=== PATIENT | male | born 1935 | race Caucasian/White ===

== ENCOUNTER 2020-04-13 09:04 | Inpatient (IN) | payer MEDICARE ==
[~2020-04-13] VITALS: Ht 167.6 cm; Wt 63.7 kg
[2020-04-13 09:28] LABS: BASOPHILS % (AUTO) 0.1 % (0.0-5.0); EOSINOPHILS % (AUTO) 0.4 % (0.0-8.0); HEMATOCRIT 47.2 % (42-54); LYMPHOCYTES % (AUTO) 9.7 % (21.0-51.0); MEAN CORPUSCULAR HEMOGLOBIN 30.8 pg (27.0-33.0); MEAN CORPUSCULAR HGB CONC 31.4 g/dL (32.0-36.0); MEAN CORPUSCULAR VOLUME 98.1 fL (79-99); MONOCYTES % (AUTO) 8.6 % (3.0-13.0); NEUTROPHILS % (AUTO) 80.6 % (40.0-77.0); PLATELET COUNT (AUTO) 148 K/uL (130-400); RED BLOOD CELL COUNT(AUTO) 4.81 MIL/uL (4.50-6.20); RED CELL DISTRIBUTION WIDTH 14.6 % (11.0-15.5); WHITE BLOOD COUNT (AUTO) 7.1 K/uL (4.8-10.8)
[2020-04-13 09:41] LABS: CREATININE 1.8 mg/dL (0.5-1.5); POTASSIUM 4.1 mmol/L (3.5-5.1)
[2020-04-13 09:42] LABS: INR 1.38 (0.85-1.15); PROTHROMBIN TIME 14.7 SEC (9.6-11.6)
[2020-04-13 09:45] LABS: ALBUMIN 3.4 g/dL (3.5-5.0); BILIRUBIN,TOTAL 0.9 mg/dL (0.2-1.0); TOTAL PROTEIN, SERUM 7.1 g/dL (6.0-8.3)
[2020-04-13 09:49] LABS: APPEARANCE,URINE Clear (CLEAR); BILIRUBIN,URINE Negative (NEGATIVE); COLOR,URINE Yellow (YELLOW); GLUCOSE, URINE (UA) 500 mg/dL (NEGATIVE); KETONES,URINE Negative (NEGATIVE); LEUKOCYTE ESTERASE ,URINE Negative (NEGATIVE); NITRATE,URINE Negative (NEGATIVE); OCCULT BLOOD,URINE Negative (NEGATIVE); PROTEIN,URINE Trace mg/dL (NEGATIVE); UROBILINOGEN,URINE 0.2 mg/dL (0.2-1.0)
[2020-04-13 10:01] LABS: BACTERIA,URINE None Seen /HPF (None Seen); RBC,URINE 0-1 /HPF (0-1); SQUAMOUS EPITHELIAL CELL,UR 0-2 /HPF (0-2); WBC,URINE 0-1 /HPF (0-1)
[2020-04-13 11:24] LABS: ABG BASE EXCESS -2.1 mmol/L (-2.0-3.0); ABG HCO3 21.3 mmol/L (21.0-28.0); ABG OXYGEN SATURATION 95.6 % (95.0-99.0); ABG PCO2 33 mmHg (35-48)
[2020-04-13] MEDS ORDERED: FUROSEMIDE 10 MG/ML 4ML VIAL ONE (13:05)
[2020-04-13] MEDS ORDERED: PHARMACY COMMUNICATION MISC SCH (17:00)
[2020-04-13] MEDS ORDERED: GLUCAGON 1MG KIT 1 MG ML IM PRN (17:00)
[2020-04-13] MEDS ORDERED: DEXTROSE 50%-WATER 50 ML DISP.SYRIN IV PRN (17:00)
[2020-04-13] MEDS: DEXTROSE 5%-LACTATED RINGERS 1,000 ML IV SCH (17:00)
[2020-04-13] MEDS: LEVOFLOXACIN 500 MG/D5W 100 ML 100 ML IV SCH (17:00)
[2020-04-13] MEDS ORDERED: ACETAMINOPHEN 325 MG TAB PO PRN (17:00)
[2020-04-13] MEDS ORDERED: ONDANSETRON HCL 4 MG/2 ML VIAL IVP PRN (17:00)
[2020-04-13] MEDS ORDERED: ZOSYN 3.375GM+NS 50ML 50 ML IV ONE (17:18)
[2020-04-13] MEDS ORDERED: LEVOFLOXACIN 500 MG/D5W 100 ML 100 ML ONE (18:05)
[2020-04-13 18:20] VITALS: BP 135/70
[2020-04-13 19:35] VITALS: BP 141/69
[2020-04-13] MEDS: AZTREONAM 1 GM VIAL IVP SCH (21:12)
[2020-04-13] MEDS: INSULIN R PO SS1 SQ SCH (21:21)
[2020-04-13 23:30] VITALS: BP 118/76
[2020-04-14 04:00] VITALS: BP 139/74
[2020-04-14] MEDS: INSULIN R PO SS1 SQ SCH ×4 (05:40→20:29)
[2020-04-14] MEDS: AZTREONAM 1 GM VIAL IVP SCH ×2 (05:43→18:46)
[2020-04-14] MEDS: DEXTROSE 5%-LACTATED RINGERS 1,000 ML IV SCH (05:43)
[2020-04-14 05:59] LABS: HEMATOCRIT 43.8 % (42-54); MEAN CORPUSCULAR HEMOGLOBIN 30.7 pg (27.0-33.0); MEAN CORPUSCULAR HGB CONC 32.4 g/dL (32.0-36.0); MEAN CORPUSCULAR VOLUME 94.8 fL (79-99); RED BLOOD CELL COUNT(AUTO) 4.62 MIL/uL (4.50-6.20); RED CELL DISTRIBUTION WIDTH 14.5 % (11.0-15.5); WHITE BLOOD COUNT (AUTO) 6.9 K/uL (4.8-10.8)
[2020-04-14 06:02] LABS: HEMOGLOBIN A1C 8.3 % (4.0-6.0)
[2020-04-14 06:16] LABS: ALBUMIN 2.7 g/dL (3.5-5.0); BILIRUBIN,TOTAL 0.9 mg/dL (0.2-1.0); CREATININE 1.5 mg/dL (0.5-1.5); MAGNESIUM 1.9 mg/dL (1.80-2.40); POTASSIUM 3.4 mmol/L (3.5-5.1); TOTAL PROTEIN, SERUM 5.8 g/dL (6.0-8.3)
[2020-04-14] MEDS ORDERED: CYPR4TAB46 PO (06:25)
[2020-04-14] MEDS ORDERED: FOLI1 PO (06:25)
[2020-04-14] MEDS ORDERED: HYDR-3421 PO (06:25)
[2020-04-14] MEDS ORDERED: ISOS30TA6 PO (06:25)
[2020-04-14] MEDS ORDERED: SITA25TA5 PO (06:25)
[2020-04-14] MEDS ORDERED: PRAV10TA39 PO (06:25)
[2020-04-14] MEDS ORDERED: HYDR10 PO (06:25)
[2020-04-14] MEDS ORDERED: GLIM2TAB30 PO (06:25)
[2020-04-14] MEDS ORDERED: FERR325T22 PO (06:25)
[2020-04-14] MEDS ORDERED: CARV6.25 PO (06:25)
[2020-04-14] MEDS ORDERED: APIX5TAB PO (06:25)
[2020-04-14] MEDS ORDERED: CYAN-52 PO (06:34)
[2020-04-14] MEDS ORDERED: NITR0.4T50 SL (06:34)
[2020-04-14] MEDS ORDERED: ERGO500014 PO (06:34)
[2020-04-14] MEDS ORDERED: DEXA1TAB PO (06:34)
[2020-04-14] MEDS ORDERED: LEVO500T89 PO (06:40)
[2020-04-14 08:00] VITALS: BP 156/72
[2020-04-14] MEDS ORDERED: ENOXAPARIN SODIUM 30 MG/0.3 ML SQ SCH (09:00)
[2020-04-14] MEDS: TAMSULOSIN HCL 0.4 MG CAP.ER.24H PO SCH (09:20)
[2020-04-14 12:00] VITALS: BP 149/75
[2020-04-14 16:00] VITALS: BP 150/84
[2020-04-14 19:00] VITALS: BP 144/76
[2020-04-14 23:41] VITALS: BP 144/78
[2020-04-15 03:39] VITALS: BP 158/72
[2020-04-15] MEDS: INSULIN R PO SS1 SQ SCH ×4 (07:21→20:08)
[2020-04-15] MEDS: AZTREONAM 1 GM VIAL IVP SCH ×2 (07:21→20:01)
[2020-04-15 08:00] VITALS: BP 150/80
[2020-04-15] MEDS: TAMSULOSIN HCL 0.4 MG CAP.ER.24H PO SCH (10:05)
[2020-04-15 12:00] VITALS: BP 150/79
[2020-04-15 16:00] VITALS: BP 129/79
[2020-04-15] MEDS: LEVOFLOXACIN 500 MG/D5W 100 ML 100 ML IV SCH (17:47)
[2020-04-15 19:00] VITALS: BP 152/80
[2020-04-16] VITALS (7 sets, daily range): BP systolic 132–147; BP diastolic 69–88
[2020-04-16 05:24] LABS: HEMATOCRIT 43.7 % (42-54); MEAN CORPUSCULAR HEMOGLOBIN 30.1 pg (27.0-33.0); MEAN CORPUSCULAR HGB CONC 31.8 g/dL (32.0-36.0); MEAN CORPUSCULAR VOLUME 94.6 fL (79-99); RED BLOOD CELL COUNT(AUTO) 4.62 MIL/uL (4.50-6.20); RED CELL DISTRIBUTION WIDTH 14.3 % (11.0-15.5); WHITE BLOOD COUNT (AUTO) 6.5 K/uL (4.8-10.8)
[2020-04-16 05:53] LABS: CREATININE 1.5 mg/dL (0.5-1.5); MAGNESIUM 1.7 mg/dL (1.80-2.40); POTASSIUM 4.2 mmol/L (3.5-5.1)
[2020-04-16] MEDS: INSULIN R PO SS1 SQ SCH ×4 (05:59→20:14)
[2020-04-16] MEDS: AZTREONAM 1 GM VIAL IVP SCH ×2 (06:18→20:18)
[2020-04-16] MEDS: TAMSULOSIN HCL 0.4 MG CAP.ER.24H PO SCH (10:24)
[2020-04-17 03:56] VITALS: BP 141/82
[2020-04-17] MEDS: INSULIN R PO SS1 SQ SCH ×4 (05:50→15:45)
[2020-04-17 08:12] VITALS: BP 122/64
[2020-04-17] MEDS: TAMSULOSIN HCL 0.4 MG CAP.ER.24H PO SCH (09:12)
[2020-04-17] MEDS: AZTREONAM 1 GM VIAL IVP SCH (09:12)
[2020-04-17 11:33] VITALS: BP 133/71
[2020-04-17] MEDS: LEVOFLOXACIN 500 MG/D5W 100 ML 100 ML IV SCH (15:45)
[2020-04-17 16:32] VITALS: BP 133/78
== END 2020-04-17 17:35 | DRG 194 ==
LOC: EDH 09:04 → EDHIP 13:10 → 3BH 17:40
PROVIDERS: ADMIT Internal Medicine Infectious Disease; ATTEND Internal Medicine Infectious Disease
DX: J18.9 Pneumonia, unspecified organism (principal); N17.9 Acute kidney failure, unspecified; N39.0 Urinary tract infection, site not specified; E11.9 Type 2 diabetes mellitus without complications; E86.0 Dehydration; I25.5 Ischemic cardiomyopathy; I25.10 Atherosclerotic heart disease of native coronary artery without angina pectoris; I50.9 Heart failure, unspecified; Z20.828 Contact with and (suspected) exposure to other viral communicable diseases; E78.5 Hyperlipidemia, unspecified; R53.81 Other malaise; I11.0 Hypertensive heart disease with heart failure; Z83.3 Family history of diabetes mellitus; Z86.73 Personal history of transient ischemic attack (TIA), and cerebral infarction without residual deficits; Z95.1 Presence of aortocoronary bypass graft; Z90.49 Acquired absence of other specified parts of digestive tract; Z88.1 Allergy status to other antibiotic agents; Z88.0 Allergy status to penicillin; Z88.8 Allergy status to other drugs, medicaments and biological substances; Z79.84 Long term (current) use of oral hypoglycemic drugs; Z79.899 Other long term (current) drug therapy
CPT/HCPCS: 36415; 36600; 71045; 74018; 74176; 80048; 80053; 81001; 82150; 82550; 82803; 82948; 83036; 83690; 83735; 83880; 84484; 85025; 85027; 85610; 85730; 87426; 92610; 97039; G0378; J1815; J1940; J1956; J2543; J3490; U0003